=== PATIENT | female | born 1955 | race Caucasian/White ===

== ENCOUNTER 2024-09-13 13:24 | Inpatient (IN) | payer OTHER ==
[~2024-09-13] VITALS: Ht 162.6 cm; Wt 49.4 kg
[2024-09-13] MEDS: ONDANSETRON HCL 4MG/2ML INJ IV ONE (14:28)
[2024-09-13 14:43] LABS: BASOPHILS % 0.8 % (0.0-2.0); EOSINOPHILS % 3.2 % (0.0-5.0); HEMATOCRIT. 26.2 % (36.0-48.0); LYMPHOCYTES % 13.2 % (20.0-50.0); MEAN CORPUSCULAR HEMOGLOBIN 28.3 pg (28.0-32.0); MEAN CORPUSCULAR HGB CONC 30.7 g/dL (31.0-37.0); MEAN CORPUSCULAR VOLUME 92.3 fL (81.0-99.0); MEAN PLATELET VOLUME 8.8 fl (7.4-10.4); MONOCYTES % 10.7 % (2.0-8.0); NEUTROPHILS % 72.1 % (40.0-76.0); PLATELET 320 x1000/uL (130-400); RED BLOOD CELL COUNT 2.84 mill/uL (4.2-5.4); RED CELL DISTRIBUTION WIDTH 23.6 % (11.6-14.6); WHITE BLOOD COUNT 8.5 x1000/uL (4.5-11.0)
[2024-09-13 14:46] LABS: ADD RBC MORPHOLOGY YES; DIFFERENTIAL COMMENT 1
[2024-09-13 14:47] LABS: CHLORIDE 94 mEq/L (98-107); SODIUM 133 mEq/L (136-145)
[2024-09-13 14:48] LABS: CARBON DIOXIDE 26 mEq/L (21-32)
[2024-09-13 14:49] LABS: CALCIUM 9.1 mg/dL (8.7-10.4)
[2024-09-13 14:53] LABS: CREATININE 4.1 mg/dL (0.6-1.0)
[2024-09-13 14:54] LABS: GLUCOSE 152 mg/dL (70-105); UREA NITROGEN BLOOD 43 mg/dL (9-23)
[2024-09-13 14:55] LABS: ALANINE AMINOTRANSFERASE 33 IU/L (10-49); ALBUMIN 3.9 g/dL (3.2-4.8); ASPARTATE AMINOTRANSFERASE 84 IU/L (<34); TROPONIN I HIGH SENSITIVITY 14 ng/L (3.0-34)
[2024-09-13 14:56] LABS: BILIRUBIN DIRECT 0.1 mg/dL (<=3.0); BILIRUBIN TOTAL 0.3 mg/dL (0.1-1.0); PROTEIN TOTAL 7.6 g/dL (6.0-8.3)
[2024-09-13 14:59] LABS: PLATELET ESTIMATE NORMAL
[2024-09-13 15:03] LABS: ANISOCYTOSIS 2+
[2024-09-13 16:44] LABS: PARTIAL THROMBOPLASTIN TIME 25.8 sec (23.4-31.0); PROTHROMBIN TIME 10.4 sec (9.6-11.0)
[2024-09-13] MEDS ORDERED: CALCIUM GLUCONATE 1,000 MG in DEXT 5% WATER 100 ML IV ONE (17:00)
[2024-09-13] MEDS ORDERED: ALBUTEROL (0.083%) 2.5MG/3ML NEB HHN SCH (17:00)
[2024-09-13 17:44] LABS: INFLUENZA TYPE A Presumptive Negative (Pres. Neg.); INFLUENZA TYPE B Presumptive Negative (Pres. Neg.)
[2024-09-13 17:45] LABS: RESPIRATORY SYNCYTIAL VIRUS Not Detected (Not Detectd)
[2024-09-13] MEDS ORDERED: HYDRALAZINE 20MG/ML VIAL IV PRN (18:15)
[2024-09-13] MEDS ORDERED: DEXTROSE 50% WATER 50ML SYRINGE IV PRN (18:15)
[2024-09-13] MEDS ORDERED: IPRATROPIUM/ALBUTEROL 0.5-3(2.5)MG/3ML NEB HHN PRN (18:15)
[2024-09-13] MEDS: INSULIN REGULAR (HUMULIN R) 1000UNITS/10ML VIAL IV ONE (18:22)
[2024-09-13] MEDS: DEXTROSE 50% WATER 50ML SYRINGE IV ONE (18:31)
[2024-09-13] MEDS: SODIUM BICARBONATE 8.4% 50MEQ/50ML SYR IV ONE (18:32)
[2024-09-13] MEDS: CALCIUM GLUCONATE 1GM PREMIX 50 ML IV NR (18:32)
[2024-09-13] MEDS: INSULIN LISPRO 100 UNITS/ML SUBCUT SCH (18:36)
[2024-09-13] MEDS ORDERED: ONDANSETRON HCL 4MG/2ML INJ IV PRN (19:15)
[2024-09-13] MEDS ORDERED: NALOXONE HCL 0.4MG/ML VIAL IV PRN (19:30)
[2024-09-13] MEDS: ENOXAPARIN 60MG/0.6ML SYR SUBCUT SCH (21:30)
[2024-09-13] MEDS: BLOOD SUGAR DIAGNOSTIC STRIP TEST SCH (21:38)
[2024-09-13 22:59] LABS: POTASSIUM 5.5 mEq/L (3.5-5.1)
[2024-09-14] VITALS (14 sets, daily range): BP systolic 113–153; BP diastolic 52–78; PULSE 72–98; RESP 14–20; TEMP 36.2–36.8; O2SAT 96–100
[2024-09-14] MEDS: WARFARIN SODIUM 7.5MG TABLET PO NR (00:18)
[2024-09-14 05:24] LABS: CHLORIDE 96 mEq/L (98-107); POTASSIUM 5.6 mEq/L (3.5-5.1); SODIUM 134 mEq/L (136-145)
[2024-09-14 05:25] LABS: CARBON DIOXIDE 25 mEq/L (21-32)
[2024-09-14 05:26] LABS: CALCIUM 8.7 mg/dL (8.7-10.4)
[2024-09-14 05:30] LABS: CREATININE 4.7 mg/dL (0.6-1.0); GLUCOSE 109 mg/dL (70-105)
[2024-09-14 05:31] LABS: UREA NITROGEN BLOOD 59 mg/dL (9-23)
[2024-09-14 06:26] LABS: BASOPHILS % 0.9 % (0.0-2.0); EOSINOPHILS % 2.4 % (0.0-5.0); HEMATOCRIT. 25.2 % (36.0-48.0); HEMOGLOBIN. 8.1 g/dL (12.0-16.0); LYMPHOCYTES % 19.4 % (20.0-50.0); MEAN CORPUSCULAR HEMOGLOBIN 29.3 pg (28.0-32.0); MEAN CORPUSCULAR HGB CONC 32.3 g/dL (31.0-37.0); MEAN CORPUSCULAR VOLUME 90.6 fL (81.0-99.0); MEAN PLATELET VOLUME 8.9 fl (7.4-10.4); MONOCYTES % 12.8 % (2.0-8.0); NEUTROPHILS % 64.5 % (40.0-76.0); PLATELET 260 x1000/uL (130-400); RED BLOOD CELL COUNT 2.78 mill/uL (4.2-5.4); RED CELL DISTRIBUTION WIDTH 22.6 % (11.6-14.6)
[2024-09-14 07:04] LABS: DIFFERENTIAL COMMENT 1
[2024-09-14] MEDS ORDERED: ALBUTEROL (0.083%) 2.5MG/3ML NEB HHN NR (09:00)
[2024-09-14] MEDS ORDERED: AMLO5TAB88 PO (10:18)
[2024-09-14] MEDS ORDERED: CALC-1042 PO (10:18)
[2024-09-14] MEDS ORDERED: CYAN250010 PO (10:18)
[2024-09-14] MEDS ORDERED: SEVE800T8 PO (10:18)
[2024-09-14] MEDS ORDERED: VITA1CAP PO (10:18)
[2024-09-14] MEDS ORDERED: ATOR10TA69 PO (10:18)
[2024-09-14] MEDS: SODIUM ZIRCONIUM CYCLOSILICATE 10GM/PACKET PO NR (10:36)
[2024-09-14] MEDS ORDERED: DOCUSATE SODIUM 250MG CAPSULE PO PRN (14:15)
[2024-09-14] MEDS: AMLODIPINE 5MG TABLET PO SCH (14:58)
[2024-09-14] MEDS: FUROSEMIDE 40MG TABLET PO SCH (15:02)
[2024-09-14] MEDS: PANTOPRAZOLE 40MG DR TABLET PO SCH (15:02)
[2024-09-14] MEDS: SEVELAMER CARBONATE 800 MG TABLET PO SCH (18:33)
[2024-09-14 18:44] LABS: INR 1.4; PROTHROMBIN TIME 14.7 sec (9.6-11.0)
[2024-09-14 18:46] LABS: POTASSIUM 4.3 mEq/L (3.5-5.1)
[2024-09-14 18:51] LABS: TROPONIN I HIGH SENSITIVITY 24 ng/L (3.0-34)
[2024-09-14 19:07] LABS: HEPATITIS B SURFACE ANTIGEN NEGATIVE (Negative)
[2024-09-14 19:28] LABS: HEPATITIS A AB IGM NEGATIVE (Negative); HEPATITIS B CORE AB IGM NEGATIVE (Negative)
[2024-09-14 19:29] LABS: HEPATITIS C AB NON REACTIVE (Neg) (Negative)
[2024-09-14] MEDS: LATANOPROST 0.005% OPHTH DROPS 2.5ML BOTHEYE SCH (21:00)
[2024-09-14] MEDS: INSULIN GLARGINE 100 UNITS/ML SUBCUT SCH (21:01)
[2024-09-15] VITALS: BP 141/56; PULSE 74; RESP 20; TEMP 36.6; O2SAT 100
[2024-09-15] MEDS: ACETAMINOPHEN 325MG TABLET PO PRN (02:32)
[2024-09-15] MEDS: DIPHENHYDRAMINE 50MG/ML VIAL IM PRN (03:20)
[2024-09-15 04:00] VITALS: BP 153/67; PULSE 74; RESP 19; TEMP 36.4; O2SAT 99
[2024-09-15 06:38] LABS: INR 1.5; PROTHROMBIN TIME 15.9 sec (9.6-11.0)
[2024-09-15 06:42] LABS: CARBON DIOXIDE 25 mEq/L (21-32); CHLORIDE 93 mEq/L (98-107); POTASSIUM 4.2 mEq/L (3.5-5.1); SODIUM 134 mEq/L (136-145)
[2024-09-15 06:43] LABS: CALCIUM 8.9 mg/dL (8.7-10.4)
[2024-09-15 06:48] LABS: CREATININE 4.3 mg/dL (0.6-1.0); GLUCOSE 178 mg/dL (70-105); UREA NITROGEN BLOOD 43 mg/dL (9-23)
[2024-09-15 06:49] LABS: ALANINE AMINOTRANSFERASE 37 IU/L (10-49)
[2024-09-15 06:50] LABS: ALBUMIN 3.7 g/dL (3.2-4.8); ASPARTATE AMINOTRANSFERASE 44 IU/L (<34); BILIRUBIN TOTAL 0.3 mg/dL (0.1-1.0); PROTEIN TOTAL 7.4 g/dL (6.0-8.3)
[2024-09-15 08:00] VITALS: BP 145/54; PULSE 70; RESP 17; TEMP 36.2; O2SAT 98
[2024-09-15] MEDS ORDERED: AMLODIPINE 10MG TABLET PO SCH (09:00)
[2024-09-15] MEDS: AMLODIPINE 5MG TABLET PO NR (09:49)
[2024-09-15] MEDS: LOSARTAN 50 MG TABLET PO SCH (09:49)
[2024-09-15 12:00] VITALS: BP 129/31; PULSE 68; RESP 17; TEMP 35.3; O2SAT 96
[2024-09-15 16:00] VITALS: BP 102/63; PULSE 78; RESP 17; RESP 18; TEMP 36.2; O2SAT 98
[2024-09-15] MEDS: WARFARIN SODIUM 7.5MG TABLET PO SCH (18:07)
[2024-09-15] MEDS: ROPINIROLE HCL 0.25MG TABLET PO SCH (18:22)
[2024-09-15 20:00] VITALS: BP 118/70; PULSE 71; RESP 20; TEMP 36.2; O2SAT 98
[2024-09-15] MEDS: HYDROCODONE/ACETAMINOPHEN 5/325MG TABLET PO PRN (21:07)
[2024-09-15] MEDS: ZOLPIDEM TARTRATE 5MG TABLET PO PRN (21:16)
[2024-09-16] VITALS (13 sets, daily range): BP systolic 123–160; BP diastolic 45–76; PULSE 66–112; RESP 14–20; TEMP 36.4–36.6; O2SAT 95–99
[2024-09-16 06:23] LABS: INR 1.7; PROTHROMBIN TIME 17.3 sec (9.6-11.0)
[2024-09-16 07:32] LABS: BASOPHILS % 1.4 % (0.0-2.0); EOSINOPHILS % 6.2 % (0.0-5.0); HEMATOCRIT. 24.5 % (36.0-48.0); HEMOGLOBIN. 7.9 g/dL (12.0-16.0); LYMPHOCYTES % 16.1 % (20.0-50.0); MEAN CORPUSCULAR HEMOGLOBIN 29.1 pg (28.0-32.0); MEAN CORPUSCULAR HGB CONC 32.2 g/dL (31.0-37.0); MEAN CORPUSCULAR VOLUME 90.4 fL (81.0-99.0); MEAN PLATELET VOLUME 8.9 fl (7.4-10.4); MONOCYTES % 12.6 % (2.0-8.0); NEUTROPHILS % 63.7 % (40.0-76.0); PLATELET 276 x1000/uL (130-400); RED BLOOD CELL COUNT 2.71 mill/uL (4.2-5.4); RED CELL DISTRIBUTION WIDTH 22.3 % (11.6-14.6); WHITE BLOOD COUNT 6.1 x1000/uL (4.5-11.0)
[2024-09-16 08:05] LABS: DIFFERENTIAL COMMENT 1
[2024-09-16] MEDS: AMLODIPINE 10MG TABLET PO SCH (08:29)
[2024-09-16] MEDS: CITALOPRAM HYDROBROMIDE 10MG TABLET PO SCH (08:29)
[2024-09-16] MEDS ORDERED: LOSA50TA41 PO (14:44)
[2024-09-16] MEDS ORDERED: CITA10TA16 PO (14:44)
[2024-09-16] MEDS ORDERED: XALAO BOTHEYE (14:44)
[2024-09-16] MEDS ORDERED: WARFARIN SODIUM 5MG TABLET PO NR (18:00)
[2024-09-16] MEDS ORDERED: EPOETIN ALFA-EPBX 4,000 UNIT/ML VIAL SUBCUT NR (21:00)
[2024-09-16] MEDS ORDERED: EPOETIN ALFA-EPBX 4,000 UNIT/ML VIAL SUBCUT SCH (21:00)
== END 2024-09-16 14:43 | disposition home or self-care (01) | DRG 291 ==
LOC: EDBEDREQ 13:37 → ER 14:24 → 6WST 16:51 → EDBEDREQTM 16:58 → EDBEDREQ 16:58
PROVIDERS: ADMIT Internal Medicine; ATTEND Internal Medicine
PROC: 5A1D70Z Performance of Urinary Filtration, Intermittent, Less than 6 Hours Per Day (ICD-10-PCS; principal; 2024-09-14)
PROC: 5A1D70Z Performance of Urinary Filtration, Intermittent, Less than 6 Hours Per Day (ICD-10-PCS; 2024-09-16)
DX: I13.2 Hypertensive heart and chronic kidney disease with heart failure and with stage 5 chronic kidney disease, or end stage renal disease (principal); I50.43 Acute on chronic combined systolic (congestive) and diastolic (congestive) heart failure; N18.6 End stage renal disease; I16.1 Hypertensive emergency; E87.5 Hyperkalemia; D64.9 Anemia, unspecified; E11.22 Type 2 diabetes mellitus with diabetic chronic kidney disease; E11.65 Type 2 diabetes mellitus with hyperglycemia; F41.9 Anxiety disorder, unspecified; G25.81 Restless legs syndrome; I25.10 Atherosclerotic heart disease of native coronary artery without angina pectoris; Z99.2 Dependence on renal dialysis; Z95.2 Presence of prosthetic heart valve; Z79.4 Long term (current) use of insulin; Z79.899 Other long term (current) drug therapy
CPT/HCPCS: 36415; 71045; 80048; 80053; 80076; 82962; 83036; 83735; 83880; 84132; 84145; 84484; 85025; 86705; 86709; 87340; 87420; 87804; 90935; 93005; 93306; 99291; A4606; J0610; J1200; J1650; J1815; J2405; J3490; J7060

== ENCOUNTER 2025-01-08 08:41 | Inpatient (IN) | payer OTHER, MEDICAID, MEDICARE ==
[~2025-01-08] VITALS: Ht 154.9 cm; Wt 62.1 kg
[~2025-01-08 08:41] MED LIST: AMLO5TAB88 PO; ATOR10TA69 PO; CALC-1042 PO; CITA10TA16 PO; CYAN250010 PO; LEVO250T74 PO; LOSA50TA41 PO; SEVE800T8 PO; VITA1CAP PO; XALAO BOTHEYE
[2025-01-08 09:41] LABS: HEMATOCRIT. 32.7 % (36.0-48.0); HEMOGLOBIN. 10.4 g/dL (12.0-16.0); MEAN PLATELET VOLUME 8.7 fl (7.4-10.4); PLATELET 372 x1000/uL (130-400); RED BLOOD CELL COUNT 3.96 mill/uL (4.2-5.4); RED CELL DISTRIBUTION WIDTH 20.4 % (11.6-14.6)
[2025-01-08 09:56] LABS: INR 3.3
[2025-01-08 10:04] LABS: CREATININE 4.0 mg/dL (0.6-1.0); UREA NITROGEN BLOOD 57 mg/dL (9-23)
[2025-01-08 10:06] LABS: ASPARTATE AMINOTRANSFERASE 24 IU/L (<34); BILIRUBIN DIRECT 0.2 mg/dL (<=3.0)
[2025-01-08 10:07] LABS: BILIRUBIN TOTAL 0.3 mg/dL (0.1-1.0); PROTEIN TOTAL 6.0 g/dL (6.0-8.3)
[2025-01-08 10:15] LABS: BAND% 2.0 % (1.0-6.0); EOSINOPHILS % MANUAL 1.0 % (0.0-5.0); LYMPHOCYTES % MANUAL 7.0 % (20.0-60.0); MONOCYTES % MANUAL 12.0 % (2.0-8.0); NEUTROPHILS % MANUAL 78.0 % (45.0-75.0); PLATELET ESTIMATE NORMAL
[2025-01-08] MEDS: FUROSEMIDE 40MG/4ML VIAL IVP ONE (11:34)
[2025-01-08 13:30] VITALS: BP 180/56; PULSE 66; RESP 18; TEMP 35.6; O2SAT 98
[2025-01-08 14:05] VITALS: BP 180/56; PULSE 66; RESP 18; TEMP 37.1
[2025-01-08] MEDS ORDERED: DEXTROSE 50% WATER 50ML SYRINGE IV PRN (15:30)
[2025-01-08] MEDS: HYDROCODONE/ACETAMINOPHEN 5/325MG TABLET PO PRN (15:41)
[2025-01-08] MEDS ORDERED: NALOXONE HCL 0.4MG/ML VIAL IV PRN (15:45)
[2025-01-08 16:01] VITALS: BP 174/58; PULSE 64; RESP 20; TEMP 36.4; O2SAT 98
[2025-01-08] MEDS: BLOOD SUGAR DIAGNOSTIC STRIP TEST SCH (16:59)
[2025-01-08] MEDS: HYDRALAZINE HCL 50MG TABLET PO SCH (16:59)
[2025-01-08] MEDS: INSULIN LISPRO 100 UNITS/ML SUBCUT SCH (17:00)
[2025-01-08] MEDS: SEVELAMER CARBONATE 800 MG TABLET PO SCH (18:05)
[2025-01-08 20:00] VITALS: BP 156/57; PULSE 70; RESP 20; TEMP 36.3; O2SAT 98
[2025-01-08] MEDS: LOSARTAN 50 MG TABLET PO SCH (21:22)
[2025-01-09] VITALS (13 sets, daily range): BP systolic 129–181; BP diastolic 41–82; PULSE 62–86; RESP 18–24; TEMP 35.7–36.9; O2SAT 95–99
[2025-01-09] MEDS: DILTIAZEM HCL 180MG CAPSULE ER 24HR PO SCH (09:00)
[2025-01-09] MEDS ORDERED: DIPHENHYDRAMINE HCL/ZINC ACET 28 GM CREAM TOP PRN (11:45)
[2025-01-09] MEDS ORDERED: ENOXAPARIN 100MG/ML SYR SUBCUT ONE (16:45)
[2025-01-09] MEDS: WATER IV SCH (17:34)
[2025-01-09] MEDS: DEXTROSE 5% IV SCH (17:34)
[2025-01-09] MEDS: CEFAZOLIN IV SCH (17:34)
[2025-01-09] MEDS: NYSTATIN 100,000 UNITS/GM CREAM 15GM TOP SCH (21:31)
[2025-01-09 21:56] LABS: INR 2.3
[2025-01-10] VITALS (12 sets, daily range): BP systolic 108–155; BP diastolic 40–80; PULSE 59–78; RESP 17–18; TEMP 36.5–36.7; O2SAT 98–100
[2025-01-10 08:33] LABS: BASOPHILS % 0.7 % (0.0-2.0); EOSINOPHILS % 2.4 % (0.0-5.0); HEMATOCRIT. 30.3 % (36.0-48.0); HEMOGLOBIN. 9.6 g/dL (12.0-16.0); LYMPHOCYTES % 7.3 % (20.0-50.0); MEAN PLATELET VOLUME 8.7 fl (7.4-10.4); MONOCYTES % 12.0 % (2.0-8.0); NEUTROPHILS % 77.6 % (40.0-76.0); PLATELET 338 x1000/uL (130-400); RED BLOOD CELL COUNT 3.68 mill/uL (4.2-5.4); RED CELL DISTRIBUTION WIDTH 20.2 % (11.6-14.6)
[2025-01-10 08:48] LABS: CREATININE 4.7 mg/dL (0.6-1.0); UREA NITROGEN BLOOD 63 mg/dL (9-23)
[2025-01-10 08:50] LABS: ASPARTATE AMINOTRANSFERASE 17 IU/L (<34); BILIRUBIN TOTAL 0.3 mg/dL (0.1-1.0); PROTEIN TOTAL 5.5 g/dL (6.0-8.3)
[2025-01-10] MEDS ORDERED: HYDR50TA39 PO (15:55)
[2025-01-10] MEDS ORDERED: SEVE800T8 PO (15:55)
[2025-01-10] MEDS ORDERED: NYST15CR31 TOP (15:55)
[2025-01-10] MEDS ORDERED: LOSA50TA41 PO (15:55)
[2025-01-10] MEDS ORDERED: DILT180C66 PO (15:55)
== END 2025-01-10 18:00 | disposition home or self-care (01) | DRG 432 ==
LOC: ER 08:41 → 8WST 12:17 → EDBEDREQ 12:19 → EDBEDREQTM 12:19 → EDBEDREQSVC 12:19 → ENRESERV 13:12
PROVIDERS: ADMIT Internal Medicine; ATTEND Internal Medicine
PROC: 5A1D70Z Performance of Urinary Filtration, Intermittent, Less than 6 Hours Per Day (ICD-10-PCS; principal; 2025-01-09)
PROC: 5A1D70Z Performance of Urinary Filtration, Intermittent, Less than 6 Hours Per Day (ICD-10-PCS; 2025-01-10)
DX: K74.60 Unspecified cirrhosis of liver (principal); N18.6 End stage renal disease; I12.0 Hypertensive chronic kidney disease with stage 5 chronic kidney disease or end stage renal disease; R18.8 Other ascites; L03.115 Cellulitis of right lower limb; E11.51 Type 2 diabetes mellitus with diabetic peripheral angiopathy without gangrene; D64.9 Anemia, unspecified; E11.22 Type 2 diabetes mellitus with diabetic chronic kidney disease; Z79.899 Other long term (current) drug therapy; Z95.1 Presence of aortocoronary bypass graft; Z95.2 Presence of prosthetic heart valve; Z99.2 Dependence on renal dialysis; Z88.8 Allergy status to other drugs, medicaments and biological substances
CPT/HCPCS: 36415; 71045; 73502; 73562; 76705; 80048; 80053; 80076; 82962; 83036; 83880; 85025; 86850; 86900; 90935; 93005; 93923; 96374; 97162; 99291; A4606; J0690; J1815; J1940; J7060